=== PATIENT | male | born 1955 | race Caucasian/White ===

== ENCOUNTER → 2016-08-10 | Outpatient (CLI) | payer BC ==
[~2016-08-10] MED LIST: ASPI81TA28 PO; FLM4 PO; GLC/500 PO; GLYB5TAB8 PO; METO25TA56 PO; PIOG1TAB20 PO; TRIA0.1C20; ZCR40 PO
[2016-08-10 10:16] LABS: ESTIMATED AVERAGE GLUCOSE 169 mg/dl; HA1C FLAG Normal (Normal)
== END | disposition home or self-care (01) ==
LOC: C.LAB 07:46
PROVIDERS: ATTEND Internal Medicine Endocrinology, Diabetes & Metabolism
DX: Z00.00 Encounter for general adult medical examination without abnormal findings (principal); N40.1 Benign prostatic hyperplasia with lower urinary tract symptoms; E11.9 Type 2 diabetes mellitus without complications

== ENCOUNTER → 2017-04-11 | Outpatient (CLI) | payer BC ==
--- NOTE | 2017-04-12 05:32 | PAP/PSG TECHNICIAN REPORT ---
[facility] Auto Damage Estimator Polysomnogram Report Study name: None Report date: 04/12/2017 Study date: 04/11/2017 Referring Physician: Dr. Andrew Del Cid Name: DANA CONTRERAS Interpreting Physician: Javier Hunt D.O. Date of : 1955 Auto Damage Estimator: ALVARO Ferrera. Sex: Male Age: 61 StudyType: PSG PAP Weight: 210 lbs Height: 61 years, Height 5' 9" Neck Circum:17inches BMI: 31.01 Medications: Allerga 180mg, Tamsulosin HCl 0.4mg, Victoza 18mg/3ml, Triamcinolone Cream, Simvastatin 40mg, Lisinopril 10mg, Metoprolol 25mg, Invokana 100mg, Metformin HCl ER 500mg, Lantus SoloStar 100unit/ml, ASA 81mg Patient History Study started on room air with 4cwp cpap in room #6.61 yr old male here tonight for a titration study for pressure settings. He has been on cpap for several years and has been having some problems with memory loss and not feeling refreshed in the morning. He has type 2 diabetes, hyperlipidemia and HTN. His ESS=9/24. His neck circ=17inches. Parameters Monitored NPSG: E1-M2, E2-M1, Fp1-M2, Fp2-M1, F3-M2, F4-M2, F4-M1, C3-M2, C4-M2, C4-M1, O1-M2, O2-M2, O2-M1, T3-M2, T4-M1, P3-M2, P4-M1, CHIN1, CHIN2, HR, EKG, Legs, PFLOW, SNOR, FLOW, CFLOW, Tidal Volume, THOR, ABDO, SpO2, PLTH, CPRESS, ETCO2 Wave, ETCO2, pH Sleep Architecture Sleep Stages Time at Lights Off 10:56:15 PM STAGES Time (min.) TST (%) Time at Lights On 5:26:45 AM Wake 9.5 -- Total Recording Time (TRT) 390.50 min. N1 8.5 2 Total Sleep Period (TSP) 387.5 min. N2 162.5 43 Total Sleep Time (TST) 381.0min. N3 131.5 35 Awake Time 9.5 min. REM 78.5 21 Wake after Sleep Onset 6.5 min. Sleep Efficiency (SE) 98 % Sleep Onset Latency (HANSA) 3.0 min. Number of Stage 1 Shifts None Awakenings 7 Stage Changes 80 Number of REM periods 22 REM 78.5 21 REM Latency 75.5 min. NREM 302.5 79 Body Position Analysis Supine Right Left Side Prone Vertical Total Sleep Time (min.) 140.8 138.0 106.0 244.00 0.0 0.0 Total Sleep Time (%) 36% 36% 28% 64 0% N/A% Total Sleep Time REM (min.) 8.0 28.0 42.5 None 0.0 0.0 Total Sleep Time NREM (min.) 129.0 110.0 63.5 None 0.0 0.0 Intermittent Wake (min.) 3.8 2.9 2.7 None 0.0 0.0 Total Sleep Period (%) 36% None None None None None Arousals Myoclonus (PLM) * Events Count Index Events Count Index Spontaneous 9 1 Events Awake (PLMW) 11 69.5 Respiratory 0 0.2 Events Asleep w/ Arousal (PLMA) 3 0.5 PLM 3 0 Events Asleep w/o Arousal (PLMS) 14 2.2 Snoring 7 1 Total Asleep 17 2.7 Total 19 3 Total 28 4 Respiratory Analysis * CA OA MA CH H RERA Total Count 0 0 0 0 14 0 14 Index 0.0 0.0 0.0 0 2.2 0 2.2 Mean Duration 0.0 0.0 0.0 0.00 38.4 0.0 38.4 Longest Duration 0.0 0.0 0.0 0.00 0.0 0.0 102.0 Respiratory Event Summary Total Supine ~Supine Right Left Prone REM NREM Apneas Count 0 0 0 0 0 N/A 0 0 Index 0.0 0 0 0.0 0.0 N/A 0 0 Hypopneas (4% Desat) Count 14 0 14 14 0 N/A 4 10 Index 2.2 0.0 3 6.1 0.0 N/A 3.1 2.0 Apneas & All Hypopneas Count 14 0 14 14 0 N/A 4 10 Index 2.2 0 3 6 0 N/A 3.1 2.0 Respiratory Events (E Learning Designer+All Hyp+RERA) Count 14 0 14 14 0 N/A 4 10 Index 2.2 0 3 6.1 0.0 N/A 3.1 2.0 Respiratory Related Arousal Count 0 0 1 1 0 N/A 0 1 Index 0.2 0 0 0 0 N/A 0 0 Snoring Analysis Supine Right Left Prone REM NREM Total Snore duration 22.3 min Snores count 74 950 52 N/A 53 1,023 1,076 Snore mean duration 1.2 Sec Snores index 32 413 29 N/A 40.5 202.9 169.4 TST with snoring (%) 5.9% Desaturation Event Summary: Minimum %SpO2 Event Count Mean/Min/Max Duration(sec.) Desaturation Index % Time In Bed > 90 16 35.0 / 0.5 / 56.8 2.8 86.8 86 - 90 4 19.7 / 17.0 / 23.8 4.7 13.2 81 - 85 0 N/A 0.0 0.0 76 - 80 0 N/A 0.0 0.0 71 - 75 0 N/A 0.0 0.0 66 - 70 0 N/A 0.0 0.0 61 - 65 0 N/A 0.0 0.0 56 - 60 0 N/A 0.0 0.0 51 - 55 0 N/A 0.0 0.0 < 50 0 N/A 0.0 0.0 Total REM NREM Awake <50% 0.0 min. 0.0 min. 0.0 min. 0.0 min. 51 - 60% 0.0 min. 0.0 min. 0.0 min. 0.0 min. 61 - 70% 0.0 min. 0.0 min. 0.0 min. 0.0 min. 71 - 80% 0.0 min. 0.0 min. 0.0 min. 0.0 min. 81 - 90% 51.6 min. 3.4 min. 47.4 min. 0.8 min. 91 - 100% 338.4 min. 75.1 min. 254.9 min. 8.4 min. Average 92 93 92 93 Minimum SpO2 85 88 85 89 Desaturation Event Index 2.8 2.3 2.4 25.3 # Desat. Events below 89% 5 N/A 5 N/A Time(%) with Saturation below 89% 0.5 0.0 0.5 0.0 Time(min.) with Saturation below 89% 1.9 0.0 1.9 0.0 Time (mins) REM (mins) NREM (mins) % of TST SpO2 Below 90% 14 2 N12 2.8 SpO2 Below 88% 2 0 0 0 Heart Rate Analysis Min (bpm) Max (bpm) Average (bpm) Awake 71 103 81 NREM 68 101 77 REM 70 89 80 Overall 68 101 78 Supplemental O2 Values Minimum O2 level: None Value Start Time End Time Auto Damage Estimator Comments Mr. oCntreras slept in the right, left and supine positions. No cardiac arrhythmia or PLM's noted. No bruxism noted. CPAP was initiated at +4 CMH2O and up-titrated to an optimal level of +10 CMH2O, which nearly eliminated all respiratory events and snoring. His own full face mask by [employer] was used during titration He did not use the restroom during the night. He stated that he slept well. The final report will be interpreted and signed by a sleep physician. The completed physician report will then be placed in the patient medical record. Therapy Event: Therapy (cm H20) 4 5 6 7 8 9 10 Total Time at Pressure (min.) 7.3 7.9 14.0 25.3 15.8 12.1 308.0 TST at Pressure (min.) 4.3 7.4 14.0 25.3 15.8 12.1 302.0 # Periods 1 1 1 1 1 1 1 Sleep Onset (min.) 3.0 0.0 0.0 0.0 0.0 0.0 0.0 REM Onset (min.) N/A N/A N/A N/A N/A 8.1 0.0 Sleep Efficiency % 59 93 100 100 100 100 98 Wakefulness (%) 40.9 6.3 0.0 0.0 0.0 0.0 1.9 Wakefulness (min.) 3.0 0.5 0.0 0.0 0.0 0.0 6.0 NREM 1 (%) 6.8 6.3 0.0 0.0 0.0 0.0 2.4 NREM 1 (min.) 0.5 0.5 0.0 0.0 0.0 0.0 7.5 NREM 2 (%) 52.3 87.4 69.8 0.0 0.0 45.5 44.3 NREM 2 (min.) 3.8 6.9 9.7 0.0 0.0 5.5 136.5 NREM 3 (%) 0.0 0.0 30.2 100.0 100.0 42.2 26.3 NREM 3 (min.) 0.0 0.0 4.2 25.3 15.8 5.1 81.0 REM (%) 0.0 0.0 0.0 0.0 0.0 12.4 25.0 REM (min.) 0.0 0.0 0.0 0.0 0.0 1.5 77.0 # Arousals 0 0 0 0 0 1 18 Arousal Index 0.0 0.0 0.0 0.0 0.0 5.0 3.6 # Snore 3 27 160 402 253 71 160 Snore Index 41.5 218.0 688.2 951.7 958.7 352.1 31.8 AHI 55.3 40.4 0.0 0.0 0.0 19.8 0.2 AHI Supine N/A N/A N/A N/A N/A N/A 0.0 AHI Non-Supine 55.3 40.4 0.0 0.0 0.0 19.8 0.4 NREM AHI 55.3 40.4 0.0 0.0 0.0 5.7 0.0 REM AHI N/A N/A N/A N/A N/A 120.1 0.8 RDI 55.3 40.4 0.0 0.0 0.0 19.8 0.2 # Obstructive 0 0 0 0 0 0 0 # Central Ap 0 0 0 0 0 0 0 # Mixed 0 0 0 0 0 0 0 # Hypopneas 4 5 0 0 0 4 1 RERAS 0 0 0 0 0 0 0 Total Respiratory Events 4 5 0 0 0 4 1 Time Below SpO2 89.00% (min.) 1.2 0.5 0.0 0.0 0.0 0.1 0.0 Mean NREM SpO2 (%) 89 91 91 91 93 92 92 Mean REM SpO2 (%) N/A N/A N/A N/A N/A 91 93 Mean Sleep SpO2 (%) 89 91 91 91 93 92 92 Min NREM SpO2 (%) 85 86 89 90 92 88 89 Min REM SpO2 (%) N/A N/A N/A N/A N/A 88 89 Position Supine (min.) 0.0 0.0 0.0 0.0 0.0 0.0 137.0 Position Non-supine (min.) 4.3 7.4 14.0 25.3 15.8 12.1 165.0 LM Index Sleep 0.0 16.1 0.0 0.0 0.0 5.0 2.8 LM Index NREM 0.0 16.1 0.0 0.0 0.0 5.7 2.7 LM Index REM N/A N/A N/A N/A N/A 0.0 3.1 Mean Heart Rate (bpm) 76 76 77 78 77 78 78 Min Heart Rate (bpm) 73 68 72 75 73 72 68
--- NOTE | 2017-04-17 07:52 | Sleep Study ---
Sleep Study Report Date of Service: 04/11/2017 Sleep Study Report Clinical data: The patient is a 61-year-old male with a longstanding history of obstructive sleep apnea. He has been on CPAP for several years. He has been having problems with memory loss and not feeling refreshed. He is diabetic and has hypertension. His Mesa score is 9 out of a possible 24. [facility] by Dr. Chris Del Cid for a CPAP retitration. Sleep architecture: The total sleep period was 387.5 minutes. The total sleep time was 381.0 minutes. The sleep efficiency was high at 98%. The sleep latency was short at 3 minutes. Wake after sleep onset was only 6.5 minutes. Sleep consisted of stage N1 2%, stage N2 43%, stage N3 35%, stage REM 21%. Arousal data: The patient had a total of 19 arousals including 9 spontaneous arousals, 3 PLM arousals, and 7 snoring arousals. The arousal index is 3. PLM data: The patient had a total of 17 periodic limb movements of sleep for an index of 2.7. There were 3 arousals associated with limb movements for a PLM arousal index of 0.5. EKG: The underlying cardiac rhythm was normal sinus. The cardiac rates ranged from 68 to 101 beats per minute. The average heart rate was 78 beats per minute. Respiratory data: The patient's respiratory events were treated with nasal CPAP which was titrated up to a final pressure of 10 cm. He had a total of 14 respiratory events, all of which were hypopneas. Hypopneas were scored according to the 4% desaturation rule. The mean duration of the hypopneas was 38.4 seconds. The apnea-hypopnea index was 2.2 events per hour. At the final pressure of 10 cm his apnea-hypopnea index was only 0.2. He was at that pressure for a total of 308 minutes. Oximetry data: The average saturation was 92%. The minimum saturation was 85%. The desaturations were transient and occurred at the very onset of the study prior to significant titration. There was a total of only 1.9 minutes with saturations less than 89%. Respite Worker comments: The patient slept on the right, left, and supine positions. No cardiac arrhythmia or bruxism noted. CPAP was initiated at 4 cm and up titrated to an optimal level of 10 cm which nearly eliminated all respiratory events and snoring. The patient wore his own fullface mask which was a [employer]. Impressions: 1. Obstructive sleep apnea-resolved with nasal CPAP at 10 cm. Comments: The patient did extremely well with this CPAP titration. His sleep efficiency was excellent. His sleep was very well consolidated. He had increased stage N3 sleep. There were very few arousals. There was no significant hypoxia. Recommendations: 1. It is advised that the patient be maintained on nasal CPAP at 10 cm. 2. The patient has a modest elevation of body mass index of 31. Weight reduction is advised as even modest weight reduction may result in some improvement in sleep disordered breathing. 3. In light of the patients history of not feeling refreshed in the morning, he should be advised the appropriate principles of sleep hygiene including having a regular sleep-wake schedule and allowing approximately 7.5 hours of sleep per night. Copies To 1: Javier Hunt DO; Chris Del Cid M.D.
== END | disposition home or self-care (01) ==
LOC: C.NEUR 21:00
PROVIDERS: ATTEND Internal Medicine
DX: G47.33 Obstructive sleep apnea (adult) (pediatric) (principal)

== ENCOUNTER → 2017-08-28 | Outpatient (CLI) | payer OTHER ==
[~2017-08-28] VITALS: Ht 175.3 cm; Wt 96.2 kg
[2017-08-28 15:09] VITALS: BP 136/80; PULSE 98; Ht 175.3 cm; Wt 96.2 kg
== END | disposition home or self-care (01) ==
LOC: C.NEUR 14:11
PROVIDERS: ATTEND Internal Medicine Pulmonary Disease
DX: G47.33 Obstructive sleep apnea (adult) (pediatric) (principal)